=== PATIENT | female | born 1950 | race Caucasian/White ===

== ENCOUNTER 2016-07-29 08:25 | Day surgery (SDC) | payer OTHER ==
[2016-07-28 14:55] VITALS: BMI 27.4
[2016-07-29] MEDS ORDERED: PROPOFOL 20 ML ONE (10:13)
[2016-07-29] MEDS ORDERED: MIDAZOLAM HCL 2 MG/2 ML SINGLE DOSE VIAL ONE (10:13)
[2016-07-29] MEDS ORDERED: LIDOCAINE HCL/PF 2% SDV 5ML VIAL ONE (10:16)
[2016-07-29] MEDS ORDERED: DEXAMETHASONE SOD PHOSPHATE 4 MG/1 ML VIAL ONE (10:16)
--- NOTE | 2016-07-29 10:35 | HP ---
History & Physical Update - History History: No Change - Physical Physical: No Change - Assessment Assessment: No Change - Plan Plan: No Change
[2016-07-29] MEDS ORDERED: ACETAMINOPHEN 1000 MG/100 ML VIAL (NON FORMULARY) IVPB ONE (10:36)
[2016-07-29] MEDS ORDERED: ceFAZolin SODIUM 1 GM VIAL IVPB ONE (10:45)
[2016-07-29] MEDS ORDERED: DEXTROSE 5%-0.45% SALINE 1,000 ML IV SCH (10:45)
[2016-07-29] MEDS ORDERED: ceFAZolin SODIUM 1 GM VIAL ONE (10:47)
[2016-07-29] MEDS ORDERED: oxyCODONE HCL 5 MG TABLET PO PRN (11:38)
[2016-07-29] MEDS ORDERED: ONDANSETRON 4 MG/2 ML VIAL IVPUSH PRN (11:38)
[2016-07-29] MEDS ORDERED: LACTATED RINGERS SOLUTION 1,000 ML IV SCH (11:45)
--- NOTE | 2016-07-29 12:37 | OP ---
DATE OF OPERATION: 07/29/2016 PREOPERATIVE DIAGNOSES: 1. Gross hematuria. 2. Right distal ureteral calculus. 3. Left renal calculus. POSTOPERATIVE DIAGNOSES 1. Gross hematuria. 2. Right distal ureteral calculus. 3. Left renal calculus. PROCEDURE: Cystoscopy, right ureteroscopic laser lithotripsy, retrograde pyelogram, and stent placement, left ureteroscopy, laser lithotripsy, retrograde pyelogram, and ureteral stent placement. ANESTHESIA: General. ANESTHESIOLOGIST: Srinivas Trevino M.D. SURGEON: Robert Kong M.D. FINDINGS: A 10-mm stone in the distal right ureter and a 2.2-cm stone in the left renal pelvis. Cystoscopy was normal. DRAINS: Bilateral 6 x 22 double-J ureteral stents. PREOPERATIVE INDICATIONS: The patient is a 65-year-old female who presented to the emergency room with gross hematuria. CT scan revealed a 2.2-cm left renal pelvis stone and a 1-cm right distal ureteral stone. She comes to the operating room. OPERATION: The patient was brought to the operating room and placed on the table in the supine position. She was given general anesthesia and intravenous antibiotics and placed in the modified lithotomy position. A time-out was performed. Cystoscopy was performed. The bladder itself appeared to be unremarkable. There were no tumors or stones seen in the bladder. The urethra was normal. Both UOs were seen. A wire was passed into the right UO under fluoroscopic guidance into the right kidney. A 10-Turkish lumen catheter was used up to the ureteral orifice and an ureteroscope was passed into the right distal ureter. A large obstructing stone was visualized. The stone was broken up into small passable fragments with the holmium laser fiber. Retrograde pyelogram was performed, which confirmed no other defects. No other stones were seen along the course of the ureter. A 6 x 22 double-J ureteral stent was placed using fluoroscopic guidance. The left UO was then intubated with the wire and a 10-Turkish lumen catheter and the ureteroscope was passed up into the left kidney. The ureter was clean; however, there was a very large speculated stone in the left renal pelvis. Holmium laser fiber was used to break up some of the stones, however, visibility became clouded with the stone fragments and the laser was unable to break up all the stone. Distal pyelogram was performed to define the kidney collecting system. A 6 x 22 double-J ureteral stent was left in the left kidney. The bladder was emptied. The patient was woken up. Awilda [id number]
[2016-07-29] MEDS ORDERED: ACETAMINOPHEN INJECTION 100 ML IVPB ONE (12:39)
[2016-07-29 14:28] VITALS: BP 136/82; PULSE 85; TEMP 97.6
== END 2016-07-29 13:30 | disposition home or self-care (01) ==
LOC: JASU-SURG 08:25
PROVIDERS: ATTEND Urology
PROC: BT14YZZ Fluoroscopy of Kidneys, Ureters and Bladder using Other Contrast (ICD-10-PCS; 2016-07-29)
PROC: 0TF78ZZ Fragmentation in Left Ureter, Via Natural or Artificial Opening Endoscopic (ICD-10-PCS; principal; 2016-07-29 10:30)
PROC: 0TF68ZZ Fragmentation in Right Ureter, Via Natural or Artificial Opening Endoscopic (ICD-10-PCS; 2016-07-29 10:30)
PROC: 0T768DZ Dilation of Right Ureter with Intraluminal Device, Via Natural or Artificial Opening Endoscopic (ICD-10-PCS; 2016-07-29 10:30)
DX: N20.0 Calculus of kidney (principal); N20.1 Calculus of ureter; R31.0 Gross hematuria
CPT/HCPCS: 76000-TC; 94760

== ENCOUNTER 2016-08-25 06:14 | Day surgery (SDC) | payer OTHER ==
[2016-08-24 16:02] VITALS: BMI 27.4
[2016-08-25] MEDS ORDERED: PROPOFOL 20 ML ONE ×3 (07:22)
[2016-08-25] MEDS ORDERED: MIDAZOLAM HCL 2 MG/2 ML SINGLE DOSE VIAL ONE (07:22)
[2016-08-25] MEDS ORDERED: ePHEDrine SULFATE 50 MG/1 ML AMPULE ONE (07:22)
[2016-08-25] MEDS ORDERED: SUCCINYLCHOLINE CHLORIDE 200 MG/10 ML VIAL ONE (07:22)
--- NOTE | 2016-08-25 08:07 | HP ---
History & Physical Update - History History: No Change - Physical Physical: No Change - Assessment Assessment: No Change - Plan Plan: No Change
[2016-08-25] MEDS ORDERED: ACETAMINOPHEN 1000 MG/100 ML VIAL (NON FORMULARY) IVPB ONE (08:10)
[2016-08-25] MEDS ORDERED: ceFAZolin SODIUM 1 GM VIAL ONE (08:12)
[2016-08-25] MEDS ORDERED: DEXTROSE 5%-0.45% SALINE 1,000 ML IV SCH (08:15)
[2016-08-25] MEDS ORDERED: ceFAZolin SODIUM 1 GM VIAL IVPB ONE (08:15)
[2016-08-25 09:33] VITALS: TEMP 98
[2016-08-25] MEDS ORDERED: ONDANSETRON 4 MG/2 ML VIAL IVPUSH PRN (10:36)
[2016-08-25] MEDS ORDERED: oxyCODONE HCL 5 MG TABLET PO PRN (10:36)
[2016-08-25] MEDS ORDERED: LACTATED RINGERS SOLUTION 1,000 ML IV SCH (10:45)
[2016-08-25 10:56] VITALS: BP 138/71; PULSE 81
--- NOTE | 2016-09-14 19:53 | OP ---
DATE OF OPERATION: 08/25/2016 PREOPERATIVE DIAGNOSIS: Left renal calculus. POSTOPERATIVE DIAGNOSIS: Left renal calculus. PROCEDURE: Left extracorporeal shock-wave lithotripsy. SURGEON: Robert Kong MD ANESTHESIA: Rei Frey MD FINDINGS: A large stone in the left renal pelvis, 2500 shocks were applied to the kidney. PREOPERATIVE INDICATIONS: The patient is a 65-year-old female who presented initially with gross hematuria. She was found to have a 1-cm stone in the distal right ureter and a 2.5-cm stone in her left renal pelvis. She underwent bilateral ureteroscopy with lithotripsy. The right stone was removed. The left stone, because of its size, could only be partially broken up with laser. She comes to the OR for an ESWL. OPERATION: The patient was brought to the OR, placed on the table in supine position, given IV antibiotic and anesthesia. The stone was visualized on fluoroscopy in 3 planes and ESWL was performed. 2500 shocks were applied to the stone. The patient was then woken up. She tolerated the procedure well. ROBERT KONG M.D. [id number]
== END 2016-08-25 10:40 | disposition home or self-care (01) ==
LOC: JASU-SURG 06:14
PROVIDERS: ATTEND Urology
PROC: 0TF4XZZ Fragmentation in Left Kidney Pelvis, External Approach (ICD-10-PCS; principal; 2016-08-25 08:00)
DX: N20.0 Calculus of kidney (principal)
CPT/HCPCS: 94760

== ENCOUNTER 2016-10-16 06:37 | Day surgery (SDC) | payer OTHER ==
[2016-10-13 15:39] VITALS: BMI 27.4
[2016-10-16] MEDS ORDERED: PROPOFOL 20 ML ONE ×2 (07:20)
[2016-10-16] MEDS ORDERED: SUCCINYLCHOLINE CHLORIDE 200 MG/10 ML VIAL ONE (07:20)
[2016-10-16] MEDS ORDERED: MIDAZOLAM HCL 2 MG/2 ML SINGLE DOSE VIAL ONE (07:20)
[2016-10-16] MEDS ORDERED: IBUPROFEN 800 MG/8 ML IJ IVPB PRN (07:51)
--- NOTE | 2016-10-16 07:51 | HP ---
History & Physical Update - History History: No Change - Physical Physical: No Change - Assessment Assessment: No Change - Plan Plan: No Change
[2016-10-16] MEDS ORDERED: ACETAMINOPHEN 1000 MG/100 ML VIAL (NON FORMULARY) IVPB ONE (07:52)
[2016-10-16] MEDS ORDERED: DEXTROSE 5%-0.45% SALINE 1,000 ML IV SCH (08:00)
[2016-10-16] MEDS ORDERED: ceFAZolin SODIUM 1 GM VIAL IVPB ONE (08:15)
[2016-10-16] MEDS ORDERED: IOHEXOL 300 MG/ML INFUS..BTL IJ ONE (08:20)
[2016-10-16] MEDS ORDERED: DESFLURANE GAS 240 ML BOTTLE IH ONE (08:34)
[2016-10-16] MEDS ORDERED: ONDANSETRON 4 MG/2 ML VIAL IVPUSH PRN (08:39)
[2016-10-16] MEDS ORDERED: oxyCODONE HCL 5 MG TABLET PO PRN (08:39)
[2016-10-16] MEDS ORDERED: LIDOCAINE HCL 2% JELLY 10 ML CARTRIDGE ONE (08:40)
[2016-10-16] MEDS ORDERED: LACTATED RINGERS SOLUTION 1,000 ML IV SCH (08:45)
[2016-10-16 10:53] VITALS: TEMP 98.1
[2016-10-16 11:49] VITALS: BP 142/75; PULSE 88
--- NOTE | 2016-10-19 11:43 | PATH ---
Surgical Pathology Report Patient Name: PHYLLIS KESSLER Med. Rec. #: [id number] /Age/Gender: 1950 (Age: 65) / F Account: [id number] Location: [facility] Taken: 10/16/2016 Received: 10/16/2016 Reported: 10/19/2016 Physicians: Robert Kong M.D. Specimen(s) Received OLD URETERAL STENT, LEFT Clinical History Left kidney stones Final Diagnosis OLD STENT, LEFT URETER, REMOVAL: STENT (GROSS EXAM). Electronically Signed Tay Lackey M.D. Gross Description Received fresh labeled "old ureteral stent left" is a 33 cm in length blue-green, coiled portion of tubing, consistent with a ureteral stent. No soft tissue is present. No sections are submitted, gross only. /10/16/2016 saudi10/16/2016
--- NOTE | 2016-12-22 11:17 | OP ---
DATE OF OPERATION: 10/16/2016 PREOPERATIVE DIAGNOSIS: Left renal calculus. POSTOPERATIVE DIAGNOSIS: Left renal calculus. PROCEDURE: Cystoscopy, left laser lithotripsy, stent replacement, retrograde pyelogram. SURGEON: Robert Kong MD ANESTHESIA: General. FINDING: Large stone. PREOPERATIVE INDICATIONS: The patient is a 66-year-old female with a very large stone in the left kidney. She has elected for sandwich therapy rather than a PCNL. She has undergone lithotripsy on the stone followed by an ESWL. She now comes for completion with laser lithotripsy. OPERATION: Patient was brought to the OR. Placed on the table in the supine position. Given general anesthesia and IV antibiotics. Placed in the modified lithotomy position. The groin was prepped and draped sterilely. Cystoscopy was performed. The left ureteral stent was visualized. It was replaced with a wire and a ureteral access sheath was placed over this wire up to the UPJ. A ureteroscope was then passed into the kidney and the stone was visualized. Using the holmium laser fiber, the stone was then broken up. This took quite a long time as the stone was very large. However, at the end of the procedure there were no large fragments left. Good hemostasis was maintained throughout. Retrograde pyelogram revealed no evidence of extravasation. The sheath was removed. Over the remaining wire, a 6 x 24 double-J ureteral stent was left in place, 1 loop in the kidney and 1 loop in the bladder. The bladder was emptied. The patient was woken up. Awilda [id number]
== END 2016-10-16 11:51 | disposition home or self-care (01) ==
LOC: JASU-SURG 06:37
PROVIDERS: ATTEND Urology
PROC: 0TF48ZZ Fragmentation in Left Kidney Pelvis, Via Natural or Artificial Opening Endoscopic (ICD-10-PCS; principal; 2016-10-16 08:00)
PROC: 0T778DZ Dilation of Left Ureter with Intraluminal Device, Via Natural or Artificial Opening Endoscopic (ICD-10-PCS; 2016-10-16 08:00)
PROC: BT1FYZZ Fluoroscopy of Left Kidney, Ureter and Bladder using Other Contrast (ICD-10-PCS; 2016-10-16 08:00)
DX: N20.0 Calculus of kidney (principal)
CPT/HCPCS: 76000-TC; 88300-TC; 94760